=== PATIENT | male | born 1985 | race African-American/Black ===

== ENCOUNTER 2021-02-27 14:26 | Emergency (ER) | payer SELFPAY ==
[2021-02-27 14:32] VITALS: BMI 22.4
[2021-02-27] MEDS ORDERED: ONDANSETRON *ODT* 4 MG TABLET SL ONE (15:18)
[2021-02-27] MEDS ORDERED: ACETAMINOPHEN 1000 MG/100 ML VIAL (NON FORMULARY) IVPB ONE (15:19)
[2021-02-27] MEDS ORDERED: SODIUM CHLORIDE 1,000 ML IV STA ×2 (15:19→17:23)
[2021-02-27] MEDS ORDERED: FAMOTIDINE 20 MG/50 ML IVPB 20 MG/50 ML MG IVPB ONE ×2 (15:19→15:35)
[2021-02-27] MEDS ORDERED: ONDANSETRON *ODT* 4 MG TABLET ONE (15:23)
[2021-02-27] MEDS ORDERED: DICYCLOMINE HCL 20 MG TABLET PO ONE (15:30)
[2021-02-27] MEDS ORDERED: ACETAMINOPHEN INJECTION 100 ML IVPB ONE (15:35)
[2021-02-27] MEDS ORDERED: DICYCLOMINE HCL 10 MG CAPSULE ONE (15:36)
[2021-02-27] MEDS ORDERED: METOCLOPRAMIDE HCL INJECTION 10 MG/2 ML VIAL IVPB ONE (15:45)
[2021-02-27] MEDS ORDERED: METOCLOPRAMIDE HCL INJECTION 10 MG/2 ML VIAL ONE (15:48)
[2021-02-27 15:55] LABS: BASO % 1.1 % (0-2.0); EOS % 0.4 % (0-4.5); HEMATOCRIT 43.4 % (35.4-49); HEMOGLOBIN 14.4 GM/dL (11.7-16.9); LYMPH % 8.3 % (8-40); MCHC 33.1 g/dl (32.0-35.9); MEAN CELL VOLUME 87.4 fl (80-96); MEAN PLT VOLUME 10.3 fl (7.5-11.1); MONO % 5.5 % (3.8-10.2); NEUT % 84.7 % (42.8-82.8); PLATELET COUNT 319 K/MM3 (134-434); RBC 4.96 M/mm3 (4.00-5.60); RDW 13.1 % (11.9-15.9); WHITE BLOOD COUNT 16.5 K/mm3 (4.0-10.0)
[2021-02-27 16:20] LABS: CALCIUM 9.5 mg/dL (8.5-10.1)
[2021-02-27 16:21] LABS: ALBUMIN 4.4 g/dl (3.4-5.0); BLOOD UREA NITROGEN 12.9 mg/dL (7-18)
[2021-02-27 16:25] LABS: BILIRUBIN,TOTAL 0.6 mg/dL (0.2-1)
[2021-02-27 16:26] LABS: TOT PROT 9.3 g/dl (6.4-8.2)
[2021-02-27 17:36] VITALS: BP 145/88; PULSE 65; TEMP 97.9
[2021-02-27] MEDS ORDERED: LORazepam 1 MG TABLET PO ONE (18:09)
[2021-02-27] MEDS ORDERED: LORazepam 2 MG/ML SDV VIAL IVPUSH ONE (18:14)
[2021-02-27] MEDS ORDERED: LORazepam 2 MG/ML SDV VIAL ONE (18:18)
[2021-02-27 18:30] LABS: PH,URINE 6.5 (5.0-8.0); URINE APPEARANCE CLEAR; URINE BILIRUBIN NEGATIVE (NEGATIVE); URINE COLOR YELLOW; URINE GLUCOSE (UA) NEGATIVE (NEGATIVE); URINE KETONE NEGATIVE (NEGATIVE); URINE LEUK ESTERASE NEGATIVE (NEGATIVE); URINE NITRITE NEGATIVE (NEGATIVE); URINE PROTEIN TRACE (NEGATIVE); URINE UROBILINOGEN 0.2 mg/dL (0.2-1.0)
== END 2021-02-27 19:30 | disposition home or self-care (01) ==
LOC: JER 14:26
PROC: 3E0333Z Introduction of Anti-inflammatory into Peripheral Vein, Percutaneous Approach (ICD-10-PCS; principal; 2021-02-27)
PROC: 3E033GC Introduction of Other Therapeutic Substance into Peripheral Vein, Percutaneous Approach (ICD-10-PCS; 2021-02-27)
PROC: 3E033NZ Introduction of Analgesics, Hypnotics, Sedatives into Peripheral Vein, Percutaneous Approach (ICD-10-PCS; 2021-02-27)
PROC: 3E033GC Introduction of Other Therapeutic Substance into Peripheral Vein, Percutaneous Approach (ICD-10-PCS; 2021-02-27)
PROC: 3E0337Z Introduction of Electrolytic and Water Balance Substance into Peripheral Vein, Percutaneous Approach (ICD-10-PCS; 2021-02-27)
DX: R11.15 Cyclical vomiting syndrome unrelated to migraine (principal); F12.188 Cannabis abuse with other cannabis-induced disorder
CPT/HCPCS: 36415; 80053; 81003; 83690; 85025; 87086; 99284-25; J0131; Q0162